=== PATIENT | female | born 1965 | race Caucasian/White ===

== ENCOUNTER 2016-09-27 22:50 | Emergency (ER) | payer BC ==
[~2016-09-27] VITALS: Ht 165.1 cm; Wt 81.6 kg
[~2016-09-27 22:50] MED LIST: CYCLOBENZAPRINE10 MG PO; DAYPRO600 M1 PO; HYDROCODONE BIT1 T11 PO; IBUPROFEN; MOTRIN800 MG PO; ROBAXIN750 MG PO
[2016-09-27] MEDS ORDERED: AMOXICILLIN500 M2 PO (23:07)
[2016-09-27] MEDS ORDERED: NORCO 5-325 TA1 EACH PO (23:07)
== END 2016-09-27 23:25 | disposition home or self-care (01) ==
LOC: ED 22:50
DX: K08.89 Other specified disorders of teeth and supporting structures (principal); F17.200 Nicotine dependence, unspecified, uncomplicated

== ENCOUNTER 2018-03-04 20:56 | Emergency (ER) | payer OTHER, BC ==
[~2018-03-04] VITALS: Ht 165.1 cm; Wt 95.3 kg
[~2018-03-04 20:56] MED LIST changes: +AMOXICILLIN500 M2 PO; +NORCO 5-325 TA1 EACH PO
[2018-03-04] MEDS ORDERED: CYCLOBENZAPRINE10 MG PO (21:04)
[2018-03-04] MEDS ORDERED: IBU800 MG PO (21:04)
[2018-03-04] MEDS ORDERED: PREDNISONE50 MG PO (21:04)
== END 2018-03-04 21:28 | disposition home or self-care (01) ==
LOC: ED 20:56
DX: M54.5 Low back pain (principal)

== ENCOUNTER → 2018-05-06 | Outpatient (CLI) | payer BC ==
[~2018-05-06] MED LIST changes: +IBU800 MG PO; +PREDNISONE50 MG PO
== END | disposition home or self-care (01) ==
LOC: RESCLI 01:55
DX: E66.09 Other obesity due to excess calories (principal); F32.1 Major depressive disorder, single episode, moderate; F41.9 Anxiety disorder, unspecified; F17.200 Nicotine dependence, unspecified, uncomplicated; Z88.8 Allergy status to other drugs, medicaments and biological substances

== ENCOUNTER → 2018-05-26 | Outpatient (CLI) | payer BC ==
[2018-05-26 11:35] LABS: BASO # 0.1 10*3/uL (0.0-0.1); EOS # 0.4 10*3/uL (0.0-0.4); EOS % 6.2 % (1.0-4.0); HEMOGLOBIN 13.1 g/dl (12.0-16.0); LYMPH # 2.1 10*3/uL (1.3-4.4); LYMPH % 29.5 % (27.0-41.0); MEAN CELL VOLUME 94.8 fl (81.0-99.0); MEAN CORPUSCULAR HGB CONC 32.8 g/dl (33.0-37.0); MEAN PLATELET VOLUME 9.7 fl (9.6-12.3); MONO # 0.5 10*3/uL (0.1-1.0); MONO % 7.4 % (3.0-9.0); NEUT % 55.5 % (47.0-73.0); PLATELET COUNT AUTOMATED 250 10*3/uL (130-400); RED BLOOD COUNT 4.22 10*6/uL (4.10-5.10); RED CELL DISTRI WIDTH 13.4 % (0-14.5); WHITE BLOOD COUNT 7.1 10*3/uL (4.8-10.8)
[2018-05-26 12:10] LABS: BUN 9 mg/dl (7-24); CHLORIDE 107 mmol/L (98-107); CHOLESTEROL 189 mg/dL (<200); CREATININE 0.58 mg/dL (0.55-1.02); HDL CHOLESTEROL 44 mg/dl (40-60); LDL CHOLESTEROL 101 mg/dL (9-159); POTASSIUM 4.2 mmol/L (3.5-5.1); SODIUM 141 mmol/L (136-145); TRIGLYCERIDES 222 mg/dl (<150); VLDL CHOLESTEROL 44 mg/dL (6-40)
== END | disposition home or self-care (01) ==
LOC: LAB 11:19
PROVIDERS: Internal Medicine
DX: E66.09 Other obesity due to excess calories (principal)

== ENCOUNTER → 2018-06-10 | Outpatient (CLI) | payer BC | END | disposition home or self-care (01) | LOC: RESCLI 09:02 | DX: F32.1 Major depressive disorder, single episode, moderate (principal); E55.9 Vitamin D deficiency, unspecified; E66.09 Other obesity due to excess calories; F41.9 Anxiety disorder, unspecified; Z68.35 Body mass index [BMI] 35.0-35.9, adult ==

== ENCOUNTER → 2019-01-05 | Outpatient (CLI) | payer BC ==
--- NOTE | ~2019-01-05 | EKG ---
[place], [place] ELECTROCARDIOGRAM REPORT NAME: MARCE TAYLOR UNIT #: [id number] ROOM: DOCTOR: EPIPHANY DRAFT REPORT BIRTHDATE: [birth year] [facility] Test Date: 2019-01-05 Test Time: 14:39:59 Pat Name: MARCE TAYLOR Department: Room: Gender: F Extrusion Former: : 1965 Requested By: RONNELL ESPINOSA Order Number: [id number] Reading MD: Loyd Grijalva MD Measurements Intervals [place] Rate: 58 P: 16 SD: 141 QRS: 7 QRSD: 90 T: 26 QT: 419 QTc: 412 Interpretive Statements Sinus rhythm No previous ECG available for comparison Electronically Signed On 01-06-2019 9:09:39 PST by Loyd Grijalva MD CM:EKGRPT:ELECTROCARDIOGRAM REPORT [id number] RONNELL ESPINOSA MD [facility] RONNELL ESPINOSA MD
== END | disposition home or self-care (01) ==
LOC: RESCLI 03:38
DX: F32.1 Major depressive disorder, single episode, moderate (principal); F41.9 Anxiety disorder, unspecified; E55.9 Vitamin D deficiency, unspecified; Z68.37 Body mass index [BMI] 37.0-37.9, adult; Z79.899 Other long term (current) drug therapy; Z88.8 Allergy status to other drugs, medicaments and biological substances

== ENCOUNTER → 2019-04-13 | Outpatient (CLI) | payer BC ==
[2019-04-13 15:02] LABS: BASO # 0.1 10*3/uL (0.0-0.1); BASO % 0.6 % (0.0-1.0); EOS # 0.5 10*3/uL (0.0-0.4); EOS % 4.3 % (1.0-4.0); HEMOGLOBIN 12.9 g/dl (12.0-16.0); LYMPH # 2.9 10*3/uL (1.3-4.4); LYMPH % 26.1 % (27.0-41.0); MEAN CELL VOLUME 96.4 fl (81.0-99.0); MEAN CORPUSCULAR HGB 31.1 pg (27.0-31.0); MEAN CORPUSCULAR HGB CONC 32.3 g/dl (33.0-37.0); MONO # 0.7 10*3/uL (0.1-1.0); NEUT % 62.6 % (47.0-73.0); PLATELET COUNT AUTOMATED 318 10*3/uL (130-400); RED BLOOD COUNT 4.15 10*6/uL (4.10-5.10); WHITE BLOOD COUNT 11.1 10*3/uL (4.8-10.8)
[2019-04-13 15:37] LABS: ALBUMIN 4.2 gm/dl (3.1-4.5); ALKALINE PHOSPHATASE 108 U/L (45-117); BUN 12 mg/dl (7-24); CHLORIDE 104 mmol/L (98-107); CHOLESTEROL 210 mg/dL (<200); CREATININE 0.59 mg/dL (0.55-1.02); HDL CHOLESTEROL 63 mg/dl (40-60); LDL CHOLESTEROL 113 mg/dL (9-159); POTASSIUM 4.3 mmol/L (3.5-5.1); SGOT/AST 12 IU/L (3-35); SGPT/ALT 23 U/L (12-78); SODIUM 140 mmol/L (136-145); TOTAL PROTEIN 8.1 gm/dL (6.4-8.2); TRIGLYCERIDES 171 mg/dl (<150); VLDL CHOLESTEROL 34 mg/dL (6-40)
[2019-04-16 22:04] LABS: COXSACKIE B-1 AB 1:16 (Neg:<1:8); COXSACKIE B-2 AB Negative (Neg:<1:8); COXSACKIE B-3 AB Negative (Neg:<1:8); COXSACKIE B-4 AB Negative (Neg:<1:8); COXSACKIE B-5 AB 1:16 (Neg:<1:8); COXSACKIE B-6 AB 1:16 (Neg:<1:8)
== END | disposition home or self-care (01) ==
LOC: RESCLI 01:18
PROVIDERS: Student in an Organized Health Care Education/Training Program
DX: F32.1 Major depressive disorder, single episode, moderate (principal); F41.9 Anxiety disorder, unspecified; E55.9 Vitamin D deficiency, unspecified; E66.09 Other obesity due to excess calories; N63.0 Unspecified lump in unspecified breast; F17.200 Nicotine dependence, unspecified, uncomplicated; R21 Rash and other nonspecific skin eruption; Z68.35 Body mass index [BMI] 35.0-35.9, adult; Z68.37 Body mass index [BMI] 37.0-37.9, adult

== ENCOUNTER → 2020-02-23 | Outpatient (CLI) | payer SELFPAY | END | disposition home or self-care (01) | LOC: COVID19 14:13 | PROVIDERS: ATTEND Internal Medicine | DX: Z20.828 Contact with and (suspected) exposure to other viral communicable diseases (principal) ==

== ENCOUNTER → 2021-09-21 | Outpatient (CLI) | payer OTHER, MEDICAID | LOC: RAD 10:38 | PROVIDERS: ATTEND Family Medicine | DX: M47.817 Spondylosis without myelopathy or radiculopathy, lumbosacral region (principal); M41.86 Other forms of scoliosis, lumbar region ==

== ENCOUNTER → 2021-10-04 | Outpatient (CLI) | payer MEDICAID ==
[2021-10-04 10:21] LABS: BASO # 0.1 10*3/uL (0.0-0.1); BASO % 0.6 % (0.0-1.0); EOS # 0.6 10*3/uL (0.0-0.4); EOS % 3.9 % (1.0-4.0); HEMATOCRIT 42.3 % (37.0-47.0); LYMPH # 3.5 10*3/uL (1.3-4.4); LYMPH % 25.1 % (27.0-41.0); MEAN CELL VOLUME 92.4 fl (81.0-99.0); MEAN CORPUSCULAR HGB 30.1 pg (27.0-31.0); MEAN CORPUSCULAR HGB CONC 32.6 g/dl (33.0-37.0); MONO # 0.9 10*3/uL (0.1-1.0); MONO % 6.5 % (3.0-9.0); NEUT # 8.9 10*3/uL (2.3-7.9); NEUT % 63.2 % (47.0-73.0); PLATELET COUNT AUTOMATED 314 10*3/uL (130-400); RED BLOOD COUNT 4.58 10*6/uL (4.10-5.10); RED CELL DISTRI WIDTH 14.6 % (0-14.5)
[2021-10-04 10:53] LABS: ALKALINE PHOSPHATASE 118 U/L (45-117); BUN 13 mg/dl (7-24); CHLORIDE 107 mmol/L (98-107); CHOLESTEROL 203 mg/dL (<200); CREATININE 0.54 mg/dL (0.55-1.02); IRON 82 ug/dL (50-170); LDL CHOLESTEROL 108 mg/dL (9-159); POTASSIUM 4.5 mmol/L (3.5-5.1); SGOT/AST 9 IU/L (3-35); SGPT/ALT 22 U/L (12-78); SODIUM 137 mmol/L (136-145); TRIGLYCERIDES 245 mg/dl (<150)
[2021-10-04 10:59] LABS: TOTAL PROTEIN 7.7 gm/dL (6.4-8.2)
[2021-10-04 12:17] LABS: FERRITIN 55.9 ng/mL (10.0-291.0)
== END | disposition home or self-care (01) ==
LOC: RESCLI 01:04
PROVIDERS: Internal Medicine; ATTEND Emergency Medicine
DX: R53.83 Other fatigue (principal); I10 Essential (primary) hypertension; Z12.31 Encounter for screening mammogram for malignant neoplasm of breast; Z12.4 Encounter for screening for malignant neoplasm of cervix; Z23 Encounter for immunization; Z79.899 Other long term (current) drug therapy

== ENCOUNTER 2022-08-28 22:17 | Emergency (ER) | payer BC ==
[~2022-08-28] VITALS: Ht 165.1 cm; Wt 97.5 kg
[2022-08-28] MEDS ORDERED: AMOX-CLAV 875-1 EACH PO (22:59)
== END 2022-08-28 23:15 | disposition home or self-care (01) ==
LOC: ED 22:17
DX: H66.91 Otitis media, unspecified, right ear (principal); J02.9 Acute pharyngitis, unspecified; Z79.899 Other long term (current) drug therapy; Z79.2 Long term (current) use of antibiotics

== ENCOUNTER → 2022-12-03 | Outpatient (CLI) | payer BC ==
[~2022-12-03] MED LIST changes: +AMOX-CLAV 875-1 EACH PO
== END | disposition home or self-care (01) ==
LOC: RAD 13:39
PROVIDERS: ATTEND Nurse Practitioner Family
DX: J18.9 Pneumonia, unspecified organism (principal); R05.8 Other specified cough; R91.8 Other nonspecific abnormal finding of lung field

== ENCOUNTER → 2023-02-27 | Outpatient (CLI) | payer BC | END | disposition home or self-care (01) | LOC: RAD 11:44 | PROVIDERS: ATTEND Nurse Practitioner Family | DX: S99.922A Unspecified injury of left foot, initial encounter (principal); M77.32 Calcaneal spur, left foot; M19.072 Primary osteoarthritis, left ankle and foot; X58.XXXA Exposure to other specified factors, initial encounter; Y93.89 Activity, other specified; Y92.89 Other specified places as the place of occurrence of the external cause; Y99.8 Other external cause status ==

== ENCOUNTER → 2023-06-12 | Outpatient (CLI) | payer BC | END | disposition home or self-care (01) | LOC: MAMMO 02:14 | PROVIDERS: ATTEND Internal Medicine | DX: Z12.31 Encounter for screening mammogram for malignant neoplasm of breast (principal) ==